=== PATIENT | female | born 1940 | race Caucasian/White ===

== ENCOUNTER → 2016-08-20 | Outpatient (CLI) | payer MEDICARE, BC ==
[~2016-08-20] MED LIST: AMLO2.5T78 PO; ASPI-781 PO; CARV12.579 PO; HYDR12.53 PO; LISI20TA11 PO; OXYC-481 PO; PRAV20TA63 PO; TRAM50TA2 PO; TRAZ100T15 PO
--- NOTE | 2016-08-20 15:53 | RADRPT ---
PROCEDURE: XR Right hip and pelvis. CLINICAL INDICATION: Right hip pain. Pelvic pain. Postop. TECHNIQUE: Three views. Frontal pelvis. Frontal and lateral right hip. COMPARISON: 11/17/2015. FINDINGS: There is no fracture or dislocation. The soft tissues are normal. There is a right hip total arthroplasty which appears satisfactory. The left hip is grossly normal. There is no lytic or blastic lesion. There are degenerative changes of the lower lumbar spine. IMPRESSION: 1. Satisfactory postoperative appearance of the right hip. 2. Grossly normal appearance of the left hip. 3. Degenerative changes of the lower lumbar spine. RPTAT: QQ .Alireza Dahl MD, MD Date Time Electronically viewed and signed by .Alireza Dahl MD, MD on 08/20/2016 15:53 .R/
== END | disposition home or self-care (01) ==
LOC: HKI 13:12
PROVIDERS: ATTEND Orthopaedic Surgery
DX: Z47.1 Aftercare following joint replacement surgery (principal); M17.11 Unilateral primary osteoarthritis, right knee; M25.561 Pain in right knee; Z96.641 Presence of right artificial hip joint
CPT/HCPCS: 73502; G0463

== ENCOUNTER 2017-11-04 00:09 | Inpatient (IN) | END 2017-11-10 18:45 | DRG 641 ==